=== PATIENT | male | born 1955 | race Caucasian/White ===

== ENCOUNTER 2018-06-27 20:32 | Emergency (ER) | payer OTHER ==
--- NOTE | 2018-06-27 21:04 | RAD REPORT ---
EXAM DESCRIPTION: CT - Ct Stroke Brain Wo Cont - 06/27/2018 8:54 pm CLINICAL HISTORY: Visual change, acute CVA CLINICAL HISTORY: None. TECHNIQUE: Axial 5 millimeter thick images of the head were obtained without IV contrast. All CT scans are performed using dose optimization technique as appropriate and may include automated exposure control or mA/KV adjustment according to patient size. FINDINGS: No intracranial hemorrhage, mass, or cerebral edema. No acute infarction identifiable. No cortical edema or sulcal effacement. No significant atrophy. Minimal chronic ischemic changes are pre sent. Singh matter-white matter differentiation is preserved. Visualized portions of the mastoid air cells, paranasal sinuses, and orbits are unremarkable. Findings telephoned to the referring physician 2100 hours. IMPRESSION: No CT evidence of acute intracranial process.
[2018-06-27 21:14] LABS: Absolute Monocytes 0.7 K/uL (0.1-1.3); Absolute Neutrophil 3.9 K/uL (1.8-8.0); Basophils % 0.8 % (0-1.3); Eosinophils % 4.9 % (0-4.4); Hematocrit 40.8 % (39.6-49.0); Lymphocytes % 27.8 % (15.3-44.8); MPV 7.4 fL (7.6-11.3); Monocytes % 10.7 % (3.3-12.3); RBC Red Blood Cell Count 4.51 M/uL (4.33-5.43)
[2018-06-27 21:23] LABS: Potassium 3.8 mmol/L (3.5-5.1)
[2018-06-27] MEDS ORDERED: ASPIRIN 81 MG CHEWABLE TABLET ONE (21:48)
[2018-06-27 21:49] LABS: Protime INR 0.9
--- NOTE | 2018-06-27 22:29 | ER ---
Nurse's Notes [facility] Name: Bryan Love Age: 62 yrs Sex: Male : 1955 Arrival Date: 06/27/2018 Time: 20:42 Bed 8 Private MD: Diagnosis: Transient cerebral ischemic attacks and related syndromes Presentation: 06/27 20:42 Presenting complaint: Patient states: I was in the living room and looked over at the la1 TV and I was seeing a double image when looking at it, when I sat down it got better, it happened at about 2005 and lasted for about one minute. No focal neuro deficits noted in triage, visual johnson intact. Transition of care: patient was not received from another setting of care. Onset of symptoms was June 27, 2018. Risk Assessment: Do you want to hurt yourself or someone else? Patient reports no desire to harm self or others. Initial Sepsis Screen: Does the patient meet any 2 criteria? No. Patient's initial sepsis screen is negative. Does the patient have a suspected source of infection? No. Patient's initial sepsis screen is negative. Care prior to arrival: None. 20:42 Method Of Arrival: Ambulatory la1 20:42 Acuity: AGRRETT 2 la1 21:14 No acute neurological deficit is noted. Pre-hospital glucose is not applicable to this ea patient. Triage Assessment: 20:52 The onset of the patients symptoms was June 27, 2018 at 20:05. ak1 Stroke Activation: Symptom onset < 3 hours Physician: Stroke Attending; Name: ; Notified At: ; Arrived At: Physician: Chief Stroke Resident; Name: ; Notified At: ; Arrived At: Physician: Stroke Resident; Name: ; Notified At: ; Arrived At: Physician: ED Attending; Name: Dr. Tucker; Notified At: 20:49; Arrived At: 20:49 Physician: ED Resident; Name: ; Notified At: ; Arrived At: Historical: - Allergies: 20:45 No Known Allergies; la1 - Home Meds: 20:45 lisinopril-hydrochlorothiazide 20-12.5 mg oral tab 1 tab once daily [Active]; la1 rosuvastatin 10 mg oral tab 1 tab once daily [Active]; Fish Oil oral oral [Active]; - PMHx: 20:45 Hypertension; High Cholesterol; la1 - PSHx: 20:45 None; la1 - Immunization history:: Adult Immunizations up to date. - Social history:: Smoking status: Patient/guardian denies using tobacco. - Ebola Screening: : No symptoms or risks identified at this time. Screenin:01 Abuse screen: Denies threats or abuse. Nutritional screening: No deficits noted. ea Tuberculosis screening: No symptoms or risk factors identified. Fall Risk IV access (20 points). Assessment: 20:51 Patient has been NPO before screening. The patient is alert, and able to follow ak1 commands. The patient does not exhibit slurred or garbled speech. The patient is not exhibiting difficulty speaking. The patient does not exhibit difficulty understanding words. The patient is able to swallow own secretions with no drooling or need for suction. Patient tolerated one teaspoon of water. No drooling, immediate coughing, gurgling, or clearing of the throat was noted. The patient tolerated 90mL of water. No drooling, immediate coughing, gurgling, or clearing of the throat was noted. The patient passed the bedside swallow screening. Oral medications may be given as ordered. Contact Physician for further diet orders. Provider notified of bedside swallow screening results: Akin Tucker MD. 21:16 General: Appears in no apparent distress. Behavior is calm, cooperative, appropriate ea for age. Pain: Denies pain. Neuro: Level of Consciousness is awake, alert, obeys commands, Oriented to person, place, time, situation. Cardiovascular: Patient's skin is warm and dry. Respiratory: Airway is patent Respiratory effort is even, unlabored, Respiratory pattern is regular, symmetrical. Derm: Skin is pink, warm \T\ dry. Musculoskeletal: Circulation, motion, and sensation intact. 21:55 Reassessment: Patient and/or family updated on plan of care and expected duration. Pain ea level reassessed. Patient is alert, oriented x 3, equal unlabored respirations, skin warm/dry/pink. Patient denies pain at this time. 23:00 Reassessment: Report called to Odessa MARTINEZ at the hospital at [facility]. ea 23:07 Reassessment: Patient and/or family updated on plan of care and expected duration. Pain ea level reassessed. Patient is alert, oriented x 3, equal unlabored respirations, skin warm/dry/pink. [facility] at facility for transfer, report given to EMS. Pt taken via stretcher per EMS accompanied by . 23:08 T-PA (Activase) Screening: Contraindications: Other: not appropriate at this time. ea Vital Signs: 20:45 BP 157 / 102; Pulse 68; Resp 18; Temp 97.8; Pulse Ox 98% on R/A; Weight 100.7 kg; la1 Height 5 ft. 8 in. (172.72 cm); 21:15 BP 144 / 95; Pulse 75; Resp 18; Pulse Ox 97% on R/A; ak1 22:13 BP 142 / 95; Pulse 76; Resp 18; Pulse Ox 97% on R/A; ea 22:45 BP 139 / 97; Pulse 77; Resp 18; Pulse Ox 100% on R/A; ea 20:45 Body Mass Index 33.75 (100.70 kg, 172.72 cm) la1 NIH Stroke Scale Scores: 20:50 NIHSS Score: 0 ea 21:14 NIHSS Score: 0 gs ED Course: 20:42 Patient arrived in ED. la1 20:43 Triage completed. la1 20:45 Arm band placed on left wrist. la1 20:47 Ghada Julio, MICHELLE is Primary Nurse. ea 20:48 Akin Tucker MD is Attending Physician. gs 20:55 CT Stroke Brain w/o Contrast In Process Unspecified. EDMS 20:55 Inserted saline lock: 20 gauge in right antecubital area, using aseptic technique. ea Blood collected. 21:03 Patient has correct armband on for positive identification. Bed in low position. Call ea light in reach. Side rails up X2. 21:06 X-ray completed. Portable x-ray completed in exam room. Patient tolerated procedure la2 well. 21:07 Stroke CXR 1 View In Process Unspecified. EDMS 23:07 No provider procedures requiring assistance completed. Patient transferred, IV remains ea in place. Administered Medications: 21:41 Drug: Aspirin Chewable Tablet 324 mg Route: PO; ea 21:56 Follow up: Response: No adverse reaction ea Point of Care Testing: Blood Glucose: 21:00 Blood Glucose: 98 mg/dL; ea Ranges: Outcome: 22:28 ER care complete, transfer ordered by . gs 22:30 Instructed on the need for transfer, Demonstrated understanding of instructions. ea 23:08 Transferred by ground EMS to [facility], Transfer form completed. ea 23:08 Condition: stable 23:09 Patient left the ED. NIH Stroke Scale - NIH Stroke Score Date: 06/27/2018 Time: 20:50 Total Score = 0 1a. Level of Consciousness (LOC) - 0(Alert) 1b. Level of Consciousness (LOC) (Year \T\ Age) - 0(Both) 1c. LOC Commands (Open \T\ Closes Eyes/Cotton Opener) - 0(Both) 2. Best Gaze (Lateral Gaze Paresis) - 0(Normal) 3. Visual Field Loss - 0(No visual loss) 4. Facial Palsy - 0(Normal) 5a. Left Arm: Motor (10-second hold) - 0(No drift) 5b. Right Arm: Motor (10-second hold) - 0(No drift) 6a. Left Leg: Motor (5-second hold - always test supine) - 0(No drift) 6b. Right Leg: Motor (5-second hold - always test supine) - 0(No drift) 7. Limb Ataxia (finger/nose \T\ heel/dey - test with eyes open) - 0(Absent) 8. Sensory Loss (pinprick arms/legs/face) - 0(Normal) 9. Best Language: Aphasia (description/naming/reading) - 0(No aphasia) 10. Dysarthria (speech clarity - read or repeat words) - 0(Normal) 11. Extinction and Inattention (visual/tactile/auditory/spatial/personal) - 0(No abnormality) Initials: NIH Stroke Scale - NIH Stroke Score Date: 06/27/2018 Time: 21:14 Total Score = 0 1a. Level of Consciousness (LOC) - 0(Alert) 1b. Level of Consciousness (LOC) (Year \T\ Age) - 0(Both) 1c. LOC Commands (Open \T\ Closes Eyes/Cotton Opener) - 0(Both) 2. Best Gaze (Lateral Gaze Paresis) - 0(Normal) 3. Visual Field Loss - 0(No visual loss) 4. Facial Palsy - 0(Normal) 5a. Left Arm: Motor (10-second hold) - 0(No drift) 5b. Right Arm: Motor (10-second hold) - 0(No drift) 6a. Left Leg: Motor (5-second hold - always test supine) - 0(No drift) 6b. Right Leg: Motor (5-second hold - always test supine) - 0(No drift) 7. Limb Ataxia (finger/nose \T\ heel/dey - test with eyes open) - 0(Absent) 8. Sensory Loss (pinprick arms/legs/face) - 0(Normal) 9. Best Language: Aphasia (description/naming/reading) - 0(No aphasia) 10. Dysarthria (speech clarity - read or repeat words) - 0(Normal) 11. Extinction and Inattention (visual/tactile/auditory/spatial/personal) - 0(No abnormality) Initials: Signatures: Dispatcher [employer] EDHenri Boyer RN RN la1 Felicita Mejia RN RN ak1 Ghada Julio RN RN ea Starr, Gregory, MD MD gs Ardoin, Leslie la2
--- NOTE | 2018-06-27 22:29 | EDPHYS ---
Physician Documentation [facility] Name: Bryan Love Age: 62 yrs Sex: Male : 1955 Arrival Date: 06/27/2018 Time: 20:42 Bed 8 Private MD: ED Physician Akin Tucker HPI: 06/27 21:14 This 62 yrs old Male presents to ER via Ambulatory with complaints of Vision gs Problem. 21:14 The patient's problem is reported as visual difficulty, double vision. Onset: The gs symptoms/episode began/occurred suddenly, at 20:05. Duration: This was a single incident, lasting 5 minute(s). The symptoms are alleviated by nothing. The symptoms are aggravated by nothing. Associated signs and symptoms: Pertinent positives: confusion, Pertinent negatives: chest pain. Severity of symptoms: At their worst the symptoms were severe in the emergency department the symptoms have resolved and did so just prior to arrival. The patient has not experienced similar symptoms in the past. 22:27 denies presyncope,near syncope, syncope, chest pain. gs Historical: - Allergies: 20:45 No Known Allergies; la1 - Home Meds: 20:45 lisinopril-hydrochlorothiazide 20-12.5 mg oral tab 1 tab once daily [Active]; la1 rosuvastatin 10 mg oral tab 1 tab once daily [Active]; Fish Oil oral oral [Active]; - PMHx: 20:45 Hypertension; High Cholesterol; la1 - PSHx: 20:45 None; la1 - Immunization history:: Adult Immunizations up to date. - Social history:: Smoking status: Patient/guardian denies using tobacco. - Ebola Screening: : No symptoms or risks identified at this time. ROS: 21:14 All other systems are negative. gs Exam: 21:14 Head/Face: Normocephalic, atraumatic. Eyes: Pupils equal round and reactive to light, gs extra-ocular motions intact. Lids and lashes normal. Conjunctiva and sclera are non-icteric and not injected. Cornea within normal limits. Periorbital areas with no swelling, redness, or edema. ENT: Nares patent. No nasal discharge, no septal abnormalities noted. Tympanic membranes are normal and external auditory canals are clear. Oropharynx with no redness, swelling, or masses, exudates, or evidence of obstruction, uvula midline. Mucous membranes moist. Neck: Trachea midline, no thyromegaly or masses palpated, and no cervical lymphadenopathy. Supple, full range of motion without nuchal rigidity, or vertebral point tenderness. No Meningismus. Chest/axilla: Normal chest wall appearance and motion. Nontender with no deformity. No lesions are appreciated. Cardiovascular: Regular rate and rhythm with a normal S1 and S2. No gallops, murmurs, or rubs. Normal PMI, no JVD. No pulse deficits. Respiratory: Lungs have equal breath sounds bilaterally, clear to auscultation and percussion. No rales, rhonchi or wheezes noted. No increased work of breathing, no retractions or nasal flaring. Abdomen/GI: Soft, non-tender, with normal bowel sounds. No distension or tympany. No guarding or rebound. No evidence of tenderness throughout. Back: No spinal tenderness. No costovertebral tenderness. Full range of motion. Skin: Warm, dry with normal turgor. Normal color with no rashes, no lesions, and no evidence of cellulitis. MS/ Extremity: Pulses equal, no cyanosis. Neurovascular intact. Full, normal range of motion. 21:14 Constitutional: The patient appears alert, awake. 21:14 Neuro: Orientation: is normal, Mentation: is normal, Cranial nerves: CN II- XII are normal as tested, Cerebellar function: normal finger to nose testing, Motor: moves all fours, strength is 5/5 in all extremities, Sensation: no obvious gross deficits, pin prick testing is normal, Deep tendon reflexes are normal, seizure activity, is not displayed by the patient. 21:22 ECG was reviewed by the Attending Physician. Vital Signs: 20:45 BP 157 / 102; Pulse 68; Resp 18; Temp 97.8; Pulse Ox 98% on R/A; Weight 100.7 kg; la1 Height 5 ft. 8 in. (172.72 cm); 21:15 BP 144 / 95; Pulse 75; Resp 18; Pulse Ox 97% on R/A; ak1 22:13 BP 142 / 95; Pulse 76; Resp 18; Pulse Ox 97% on R/A; ea 22:45 BP 139 / 97; Pulse 77; Resp 18; Pulse Ox 100% on R/A; ea 20:45 Body Mass Index 33.75 (100.70 kg, 172.72 cm) la1 NIH Stroke Scale Scores: 20:50 NIHSS Score: 0 ea 21:14 NIHSS Score: 0 gs MDM: 21:00 Patient medically screened. 21:14 Differential diagnosis: CVA, TIA, metabolic disorder, drug effects. Data reviewed: vital signs, nurses notes, lab test result(s), EKG, radiologic studies. Counseling: I had a detailed discussion with the patient and/or guardian regarding: the historical points, exam findings, and any diagnostic results supporting the discharge/admit diagnosis, lab results, radiology results, the need to transfer to another facility. Response to treatment: the patient's symptoms have resolved after treatment. 06/27 20:49 Order name: Basic Metabolic Panel; Complete Time: 21:27 06/27 20:49 Order name: CBC with Diff; Complete Time: 21:34 06/27 20:49 Order name: Protime (+inr); Complete Time: 21:52 06/27 20:49 Order name: Ptt, Activated; Complete Time: 21:52 06/27 20:49 Order name: CT Stroke Brain w/o Contrast; Complete Time: 21:10 06/27 21:54 Order name: Troponin (emerg Dept Use Only); Complete Time: 22:26 06/27 20:49 Order name: Stroke CXR 1 View 06/27 22:03 Interpretation: No acute disease. 06/27 20:49 Order name: EKG; Complete Time: 20:50 06/27 20:49 Order name: Accucheck; Complete Time: 21:00 06/27 20:49 Order name: Cardiac monitoring; Complete Time: 21:18 06/27 20:49 Order name: EKG - Nurse/Tech; Complete Time: 21:18 06/27 20:49 Order name: IV Saline Lock; Complete Time: 21:00 06/27 20:49 Order name: Labs collected and sent; Complete Time: 21:01 06/27 20:49 Order name: NPO; Complete Time: 21:01 06/27 20:49 Order name: O2 Per Protocol; Complete Time: 21:01 06/27 20:49 Order name: O2 Sat Monitoring; Complete Time: 21: 06/27 20:49 Order name: Stroke Swallow Screen; Complete Time: 21:01 gs EC:22 Rate is 80 beats/min. Rhythm is regular. VT interval is normal. QRS interval is gs prolonged. T waves are Normal. No ST changes noted. Clinical impression: Abnormal EKG without significant change. Interpreted by me. Administered Medications: 21:41 Drug: Aspirin Chewable Tablet 324 mg Route: PO; ea 21:56 Follow up: Response: No adverse reaction ea Point of Care Testing: Blood Glucose: 21:00 Blood Glucose: 98 mg/dL; ea Ranges: Critical Glucose Levels:Adult <50 mg/dl or >400 mg/dl <40 mg/dl or >180 mg/dl Disposition: 06/27/18 22:28 Transfer ordered to [facility]. Diagnosis is Transient cerebral ischemic attacks and related syndromes. - Reason for transfer: Higher level of care. - Accepting physician is reinaldo. - Condition is Stable. - Problem is new. - Symptoms are resolved. Critical care time excluding procedures: 21:14 Critical care time: Bedside Care: 10 minutes, Consultation: 10 minutes, Family gs Intervention: 10 minutes. Total time: 30 minutes NIH Stroke Scale - NIH Stroke Score Date: 06/27/2018 Time: 20:50 Total Score = 0 1a. Level of Consciousness (LOC) - 0(Alert) 1b. Level of Consciousness (LOC) (Year \T\ Age) - 0(Both) 1c. LOC Commands (Open \T\ Closes Eyes/Ticket Clerk) - 0(Both) 2. Best Gaze (Lateral Gaze Paresis) - 0(Normal) 3. Visual Field Loss - 0(No visual loss) 4. Facial Palsy - 0(Normal) 5a. Left Arm: Motor (10-second hold) - 0(No drift) 5b. Right Arm: Motor (10-second hold) - 0(No drift) 6a. Left Leg: Motor (5-second hold - always test supine) - 0(No drift) 6b. Right Leg: Motor (5-second hold - always test supine) - 0(No drift) 7. Limb Ataxia (finger/nose \T\ heel/dey - test with eyes open) - 0(Absent) 8. Sensory Loss (pinprick arms/legs/face) - 0(Normal) 9. Best Language: Aphasia (description/naming/reading) - 0(No aphasia) 10. Dysarthria (speech clarity - read or repeat words) - 0(Normal) 11. Extinction and Inattention (visual/tactile/auditory/spatial/personal) - 0(No abnormality) Initials: greg NIH Stroke Scale - NIH Stroke Score Date: 06/27/2018 Time: 21:14 Total Score = 0 1a. Level of Consciousness (LOC) - 0(Alert) 1b. Level of Consciousness (LOC) (Year \T\ Age) - 0(Both) 1c. LOC Commands (Open \T\ Closes Eyes/Ticket Clerk) - 0(Both) 2. Best Gaze (Lateral Gaze Paresis) - 0(Normal) 3. Visual Field Loss - 0(No visual loss) 4. Facial Palsy - 0(Normal) 5a. Left Arm: Motor (10-second hold) - 0(No drift) 5b. Right Arm: Motor (10-second hold) - 0(No drift) 6a. Left Leg: Motor (5-second hold - always test supine) - 0(No drift) 6b. Right Leg: Motor (5-second hold - always test supine) - 0(No drift) 7. Limb Ataxia (finger/nose \T\ heel/dey - test with eyes open) - 0(Absent) 8. Sensory Loss (pinprick arms/legs/face) - 0(Normal) 9. Best Language: Aphasia (description/naming/reading) - 0(No aphasia) 10. Dysarthria (speech clarity - read or repeat words) - 0(Normal) 11. Extinction and Inattention (visual/tactile/auditory/spatial/personal) - 0(No abnormality) Initials: gs Signatures: Dispatcher [employer] EDCA Henri De La Rosa RN RN la1 Ghada Julio RN RN ea Starr, Gregory, MD MD gs Corrections: (The following items were deleted from the chart) 23:09 22:28 06/27/2018 22:28 Transfer ordered to [facility]. ea Diagnosis is Transient cerebral ischemic attacks and related syndromes. Reason for transfer: Higher level of care. Accepting physician is reinaldo. Condition is Stable. Problem is new. Symptoms are resolved. gs
--- NOTE | 2018-06-28 06:19 | EKG ---
Test Date: 2018-06-27 Test Time: 21:04:03 [employer] Room Attendant: TATIANA MEASUREMENT RESULTS: Intervals: Rate: 80 OK: 198 QRSD: 146 QT: 444 QTc: 512 Jackson: P: 37 OK: 198 QRS: -32 T: 85 INTERPRETIVE STATEMENTS: Normal sinus rhythm Left axis deviation Left bundle branch block Abnormal ECG No previous ECG available for comparison Electronically Signed On 06-28-18 06:14:38 MACHINE REPAIR PERSON by Daquan Crabtree
--- NOTE | 2018-06-28 10:43 | RAD REPORT ---
EXAM DESCRIPTION: RAD - Chest Single View - 06/27/2018 9:08 pm CLINICAL HISTORY: MALAISE Chest pain. COMPARISON: No comparisons FINDINGS: Portable technique limits examination quality. The lungs are grossly clear. The heart is normal in size. No displaced fractures. IMPRESSION: No acute intrathoracic process suspected.
== END 2018-06-27 23:09 | disposition short-term general hospital (02) ==
LOC: ER 20:32
DX: G45.9 Transient cerebral ischemic attack, unspecified (principal); I44.7 Left bundle-branch block, unspecified; R94.31 Abnormal electrocardiogram [ECG] [EKG]; E78.00 Pure hypercholesterolemia, unspecified; I10 Essential (primary) hypertension; Z79.899 Other long term (current) drug therapy
CPT/HCPCS: 36415; 70450; 71045; 80048; 82962; 84484; 85025; 85610; 85730; 93005; 99285

== ENCOUNTER 2024-07-27 17:58 | Emergency (ER) | payer OTHER ==
--- NOTE | 2024-07-27 19:12 | RAD REPORT ---
Procedure: Chest Single View HISTORY: Chest pain COMPARISON: 2019 FINDINGS: The lungs appear clear of acute infiltrate. No significant pleural effusion noted. The heart is normal size. IMPRESSION: No acute abnormality is displayed.
--- NOTE | 2024-07-27 19:26 | RAD REPORT ---
EXAMINATION: CT HEAD WITHOUT CONTRAST CT CERVICAL SPINE WITHOUT CONTRAST CLINICAL INDICATION: Head and neck injury status post fall. Head and neck pain TECHNIQUE: Axial CT images from the skull base to the vertex without intravenous contrast. Axial CT i mages through the cervical spine were obtained without intravenous contrast. Sagittal and coronal reformatted images were created from the data set. Coronal and sagittal reformatted images were creat ed from the data set. One or more of the following dose reduction techniques were used: Automated exposure control, adjustment of the mA and/or kV according to patient size, and/or iterative reconstr uction. Unless otherwise specified, incidental findings do not require dedicated imaging follow-up. [id number]. Comparison: 2019 CT FINDINGS: An intracranial bleed is not seen. Ventricles are normal in caliber. No significant hypodensity within the brain No extra-axial fluid collection. No fluid within the sinuses/mastoids No fracture or dislocation is seen involving the cervical spine.. Spondylosis cervical spine. IMPRESSION: No acute intracranial abnormality noted A cervical fracture is not seen. If the patient continues to have symptoms to suggest acute MECHANICAL PRESS OPERATOR/spinal pathology then MRI would be rec ommended
[2024-07-27 19:45] LABS: Specific Gravity 1.007 (1.005-1.030); Urine Bilirubin NEGATIVE (Negative); Urine Blood Negative (Negative); Urine Clarity Clear (Clear); Urine Color Colorless (Yellow); Urine Glucose NEGATIVE (Negative); Urine Ketones 1+ (Negative); Urine Microscopic Reflex YN NO UMIC; Urine Nitrite NEGATIVE (Negative); Urine Protein NEGATIVE (Negative); Urine Urobilinogen Normal (Normal); Urine pH 6.5 (5.0-7.0)
[2024-07-27] MEDS ORDERED: TDAP (DIPHTH,PERTUSS(ACELL),TET VAC) 0.5 ML VIAL IMVAC ONE (20:08)
[2024-07-27] MEDS ORDERED: LIDOCAINE VISCOUS 2% 10ML ORAL SOLN ONE (20:08)
--- NOTE | 2024-07-27 20:47 | ER ---
Nurse's Notes [facility] Name: Bryan Love Age: 68 yrs Sex: Male : 1955 Arrival Date: 07/27/2024 Time: 17:58 Bed 2 Private MD: Diagnosis: Syncope;Laceration without foreign body of other part of head;Unspecified injury of head, initial encounter;Abrasion of unspecified back wall of thorax;Skin tear to right hand Presentation: 07/27 18:06 Chief complaint: Patient states: Pt reports walking on treadmill - fell and hit head. ld1 Pt concerned because he takes plavix once daily. Coronavirus screen: At this time, the client does not indicate any symptoms associated with coronavirus-19. Ebola Screen: No symptoms or risks identified at this time. Initial Sepsis Screen: Does the patient meet any 2 criteria? No. Patient's initial sepsis screen is negative. Does the patient have a suspected source of infection? No. Patient's initial sepsis screen is negative. Risk Assessment: Do you want to hurt yourself or someone else? Patient reports no desire to harm self or others. Onset of symptoms was July 27, 2024. 18:06 Method Of Arrival: Ambulatory ld1 18:06 Acuity: GARRETT 2 ld1 Triage Assessment: 18:06 General: Appears in no apparent distress. comfortable, Behavior is calm, cooperative, ld1 appropriate for age. Pain: Denies pain. EENT: No signs and/or symptoms were reported regarding the EENT system. Neuro: Level of Consciousness is awake, alert, obeys commands, Oriented to person, place, time, situation, Appropriate for age. Cardiovascular: Capillary refill < 3 seconds Patient's skin is warm and dry. Respiratory: Airway is patent Respiratory effort is even, unlabored. GI: Abdomen is round non-distended. : No signs and/or symptoms were reported regarding the genitourinary system. Derm: No signs and/or symptoms reported regarding the dermatologic system. Musculoskeletal: No signs and/or symptoms reported regarding the musculoskeletal system. Historical: - Allergies: 18:05 No Known Allergies; ld1 - Home Meds: 18:05 Plavix 75 mg oral tablet 1 tab daily [Active]; ld1 - PMHx: 18:05 High Cholesterol; Hypertension; Heart Stent (Hypertension); ld1 - Immunization history:: Adult Immunizations up to date. - Infectious Disease History:: Denies. - Social history:: Smoking status: Patient denies any tobacco usage or history of. Screenin:20 [facility] ED Fall Risk Assessment (Adult) History of falling in the last 3 months, jb4 including since admission No falls in past 3 months (0 pts) Confusion or Disorientation No (0 pts) Intoxicated or Sedated No (0 pts) Impaired Gait No (0 pts) Mobility Assist Device Used No (0 pt) Altered Elimination No (0 pt) Score/Fall Risk Level 0 - 2 = Low Risk Oriented to surroundings, Maintained a safe environment. Abuse screen: Denies threats or abuse. Nutritional screening: No deficits noted. Tuberculosis screening: No symptoms or risk factors identified. Assessment: 19:41 Reassessment: Patient appears in no apparent distress at this time. Patient and/or jb4 family updated on plan of care and expected duration. Pain level reassessed. Patient is alert, oriented x 3, equal unlabored respirations, skin warm/dry/pink. Pt refusing blood work at this time, provider notified. 20:18 Reassessment: Patient appears in no apparent distress at this time. Patient and/or jb4 family updated on plan of care and expected duration. Pain level reassessed. Patient is alert, oriented x 3, equal unlabored respirations, skin warm/dry/pink. 21:00 Reassessment: Patient appears in no apparent distress at this time. Patient and/or jb4 family updated on plan of care and expected duration. Pain level reassessed. Patient is alert, oriented x 3, equal unlabored respirations, skin warm/dry/pink. Vital Signs: 18:06 Pulse 86; Resp 18; Temp 97.5(TE); Pulse Ox 100% on R/A; Weight 97.98 kg; Height 5 ft. 8 ld1 in. ; Pain 0/10; 18:08 BP 188 / 102; ld1 20:13 BP 139 / 81 LA Supine (auto/reg); Pulse 79; Resp 16; Pulse Ox 99% on R/A; jb4 20:14 BP 159 / 98 LA Sitting (auto/reg); Pulse 82; Resp 16; Pulse Ox 100% on R/A; jb4 20:15 BP 146 / 98 LA Standing (auto/reg); Pulse 82; Resp 16; Pulse Ox 100% on R/A; jb4 18:06 Body Mass Index 32.84 (97.98 kg, 172.72 cm) ld1 18:06 Pain Scale: Adult ld1 ED Course: 18:00 Patient arrived in ED. mr 18:03 [facility]. kb 18:03 Romaine Li MD is Attending Physician. kb 18:06 Arm band placed on right wrist. ld1 18:07 Triage completed. ld1 18:28 Chest Single View XRAY In Process Unspecified. EDMS 19:13 CT Head C Spine In Process Unspecified. EDMS 19:41 Urinalysis w/ reflexes Sent. jb4 20:20 Patient has correct armband on for positive identification. Bed in low position. Call jb4 light in reach. Side rails up X 1. Provided Education on: plan of care. 20:20 No provider procedures requiring assistance completed. Patient did not have IV access jb4 during this emergency room visit. Administered Medications: 20:17 Drug: Boostrix Tdap IM 0.5 ml IM once; as a single dose Route: IM; Site: right deltoid; jb4 21:00 Follow up: Response: No adverse reaction jb4 20:17 Drug: Viscous Lidocaine Mucous Membrane Liquid (4 %) 5 ml Mucous Membrane once Route: jb4 Mucous Membrane; 21:00 Follow up: Response: No adverse reaction; Marked relief of symptoms jb4 Medication: 21:00 VIS not applicable for this client. jb4 Outcome: 20:47 Discharge ordered by . doris 21:00 Discharged to home ambulatory, with family, jb4 21:00 Condition: stable 21:00 Discharge instructions given to patient, Instructed on discharge instructions, follow up and referral plans. wound care, Demonstrated understanding of instructions, follow-up care, wound care, 21:01 Patient left the ED. jb4 Signatures: Dispatcher [employer] EDMS Maria E Foreman FNP-C FNP-April Quigley, Reg Reg mr WatsonChet, RN RN jb4 Lily Ibarra RN RN ld1
--- NOTE | 2024-07-27 20:47 | EDPHYS ---
Physician Documentation [facility] Name: Bryan Love Age: 68 yrs Sex: Male : 1955 Arrival Date: 07/27/2024 Time: 17:58 Bed 2 Private MD: ED Physician Romaine Li HPI: 07/27 20:35 This 68 yrs old Male presents to ER via Ambulatory with complaints of Fall Injury, Head kb Injury With LOC-Adult, Laceration To Head. 20:35 Patient is a 68-year-old male who presents for laceration to head after having a kb syncopal episode while walking on the treadmill. States he had been walking on the treadmill for about 20 minutes, got dizzy and had a syncopal episode. States he was out for just a few seconds. Hit his head on a bottle which caused a laceration. States it did not break the bottle. Denies any pain. States dizziness has resolved.. Historical: - Allergies: 18:05 No Known Allergies; ld1 - Home Meds: 18:05 Plavix 75 mg oral tablet 1 tab daily [Active]; ld1 - PMHx: 18:05 High Cholesterol; Hypertension; Heart Stent (Hypertension); ld1 - Immunization history:: Adult Immunizations up to date. - Infectious Disease History:: Denies. - Social history:: Smoking status: Patient denies any tobacco usage or history of. ROS: 20:33 Constitutional: As per HPI kb Exam: 20:33 Constitutional: This is a well developed, well nourished patient who is awake, alert, kb and in no acute distress. ENT: Moist Mucous membranes Chest/axilla: Normal chest wall appearance and motion. Cardiovascular: Regular rate Respiratory: Respirations even and unlabored. No increased work of breathing. Talking in full sentences Abdomen/GI: Soft, non-tender. No distention Back: No spinal tenderness. No costovertebral tenderness. Full range of motion. MS/ Extremity: Pulses equal, no cyanosis. Neurovascular intact. Full, normal range of motion. Neuro: Awake and alert, GCS 15, oriented to person, place, time, and situation. 20:33 Head/face: Noted is no obvious of injury or deformity except a laceration(s), that is superficial, 2.5 cm(s), of the right frontal area, 20:33 Skin: abrasion to back, skin tear to dorsal aspect of right hand. Vital Signs: 18:06 Pulse 86; Resp 18; Temp 97.5(TE); Pulse Ox 100% on R/A; Weight 97.98 kg; Height 5 ft. 8 ld1 in. ; Pain 0/10; 18:08 BP 188 / 102; ld1 20:13 BP 139 / 81 LA Supine (auto/reg); Pulse 79; Resp 16; Pulse Ox 99% on R/A; jb4 20:14 BP 159 / 98 LA Sitting (auto/reg); Pulse 82; Resp 16; Pulse Ox 100% on R/A; jb4 20:15 BP 146 / 98 LA Standing (auto/reg); Pulse 82; Resp 16; Pulse Ox 100% on R/A; jb4 18:06 Body Mass Index 32.84 (97.98 kg, 172.72 cm) ld1 18:06 Pain Scale: Adult ld1 Laceration: 20:46 Wound Repair of 2.5cm ( 1.0in ) subcutaneous laceration to right frontal area. kb Irregularly shaped.. Distal neuro/vascular/tendon intact. Anesthesia: Topical anesthetic administered with 1% lidocaine. Wound prep: Extensive cleansing by nurse, Wound irrigation by nurse. Skin closed with 5 1-0 [place] using staple gun. Patient tolerated well. MDM: 18:03 Medical Screening Exam initiated kb 20:36 Differential diagnosis: closed head injury, contusion, fracture, ICH, arrhythmia, kb abnormal electrolytes, dehydration. Data reviewed: vital signs, nurses notes. 20:37 Test considered but Not performed: Labs: Serum labs considered and ordered but patient kb does not want them done. States he has a follow-up with his dairy bacteriologist and they will do all of those test there. States he feels okay and since his CT was normal he would rather go home. States he has not been drinking his normal amount of water and he has been dieting so he thinks that is the cause of the dizziness and syncope for today.. Historians other than the Patient: Spouse/Significant Other: . Counseling: I had a detailed discussion with the patient and/or guardian regarding the historical points, exam findings, and any diagnostic results supporting the discharge/admit diagnosis, lab results, radiology results, the need for outpatient follow up, a family practitioner, to return to the emergency department if symptoms worsen or persist or if there are any questions or concerns that arise at home. 07/27 18:14 Order name: Urinalysis w/ reflexes; Complete Time: 20:04 ld07/27 18:14 Order name: CT Head C Spine; Complete Time: 19:31 ld1 07/27 18:14 Order name: Chest Single View XRAY; Complete Time: 19:15 ld07/27 18:14 Order name: Labs collected and sent; Complete Time: 20:11 ld07/27 18:14 Order name: NPO; Complete Time: 19:41 ld1 07/27 18:14 Order name: O2 Per Protocol; Complete Time: 19:41 ld07/27 18:14 Order name: O2 Sat Monitoring; Complete Time: 19:41 ld07/27 18:14 Order name: Orthostatics; Complete Time: 21:00 ld1 07/27 18:14 Order name: Dressing - Wound; Complete Time: 21:00 ld07/27 18:14 Order name: Gloves, Sterile; Complete Time: 21:00 ld07/27 18:14 Order name: Setup Suture Tray; Complete Time: 21:00 ld1 Administered Medications: 20:17 Drug: Boostrix Tdap IM 0.5 ml IM once; as a single dose Route: IM; Site: right deltoid; jb4 21:00 Follow up: Response: No adverse reaction jb4 20:17 Drug: Viscous Lidocaine Mucous Membrane Liquid (4 %) 5 ml Mucous Membrane once Route: jb4 Mucous Membrane; 21:00 Follow up: Response: No adverse reaction; Marked relief of symptoms jb4 Disposition Summary: 07/27/24 20:47 Discharge Ordered Notes: Location: Home kb Condition: Stable kb Diagnosis - Syncope kb - Laceration without foreign body of other part of head kb - Unspecified injury of head, initial encounter kb - Abrasion of unspecified back wall of thorax kb - Skin tear to right hand kb Followup: kb - With: Emergency Department - When: As needed - Reason: Worsening of condition Followup: kb - With: Private Physician - When: 2 - 3 days - Reason: Recheck today's complaints, Continuance of care, Re-evaluation by your physician Discharge Instructions: - Discharge Summary Sheet kb - Laceration Care, Adult, [id number] kb - Syncope, [id number] kb - Head Injury, Adult, [id number] kb Forms: - Medication Reconciliation Form kb - Antibiotic Education kb - Prescription Opioid Use kb - Patient Portal Instructions kb - Leadership Thank You Letter kb Signatures: Dispatcher [employer] EDUT Maria E Foreman, GRID MOLDER-C GRID MOLDER-Chet Sánchez, RN RN jb4 Lily Ibarra, RN RN ld1 Corrections: (The following items were deleted from the chart) 18:15 18:14 Head C Spine MPR Wo Con+CT.RAD.BRZ ordered. EDUT EDUT 19:41 18:14 IV Saline Lock ordered. ld1 jb4 20:11 18:14 Cardiac monitoring ordered. ld1 jb4 20:11 18:14 EKG - Nurse/Tech ordered. ld1 jb4 20:37 20:35 Patient is a 68-year-old male who presents for laceration to head after having a kb syncopal episode while walking on the treadmill. States he had been walking on the treadmill for about 20 minutes, got dizzy and had a syncopal episode. States he was out for just a few seconds. Hit his head on a bottle which caused a laceration. States it did not break the bottle. Denies any pain. States dizziness has resolved.. kb
[2024-07-27 21:25] VITALS: TEMP 97.5
[2024-07-27 21:28] VITALS: O2SAT 100
[2024-07-27 21:29] VITALS: BP 146/98
== END 2024-07-27 21:01 | disposition home or self-care (01) ==
LOC: ER 17:58
DX: S01.81XA Laceration without foreign body of other part of head, initial encounter (principal); S61.411A Laceration without foreign body of right hand, initial encounter; S20.411A Abrasion of right back wall of thorax, initial encounter; Z95.818 Presence of other cardiac implants and grafts; Z79.01 Long term (current) use of anticoagulants
CPT/HCPCS: 70450; 71045; 72125; 81003

== ENCOUNTER 2024-08-05 10:42 | Emergency (ER) | payer OTHER ==
--- NOTE | 2024-08-05 11:02 | EDPHYS ---
Physician Documentation [facility] Name: Bryan Love Age: 68 yrs Sex: Male : 1955 Arrival Date: 08/05/2024 Time: 10:42 Bed IW1 Private MD: ED Physician Romaine Li HPI: 08/05 10:59 This 68 yrs old Male presents to ER via Ambulatory with complaints of Suture Removal. rn 10:59 The patient has destini on the scalp. Sutures/destini progress: The patient has no rn c/o's. The wound is well-healing with no redness, swelling, discharge, or dehiscence reported. The patient has not experienced similar symptoms in the past. 5 destini placed in right frontotemporal region of scalp 9 days ago. Well-healed, no drainage, no headache or complaints.. Historical: - Allergies: 10:49 No Known Allergies; aa5 - PMHx: 10:48 HEART STENT (Hypertension); High Cholesterol; Hypertension; aa5 - Immunization history:: Adult Immunizations up to date. - Infectious Disease History:: Denies. - Social history:: Smoking status: Patient denies any tobacco usage or history of. - Family history:: not pertinent. - Hospitalizations: : No recent hospitalization is reported. ROS: 10:59 Constitutional: Negative for fever, chills, and weight loss, Neuro: Negative for rn headache, weakness, numbness, tingling, and seizure, Exam: 10:59 Constitutional: This is a well developed, well nourished patient who is awake, alert, rn and in no acute distress. Head/Face: 5 destini identified right frontotemporal scalp, wound appears well-healed covered by scab. No evidence of gaping Vital Signs: 10:48 BP 151 / 90; Pulse 79; Resp 16 S; Temp 97.5(TE); Pulse Ox 99% on R/A; aa5 Procedures: 10:59 Suture/Staple removal: Removed 5 destini, from scalp, site appears well healed, Patient rn tolerated well. MDM: 10:45 Medical Screening Exam initiated rn 10:59 Data reviewed: vital signs, nurses notes, and as a result, I will discharge patient. rn Counseling: I had a detailed discussion with the patient and/or guardian regarding the historical points, exam findings, and any diagnostic results supporting the discharge/admit diagnosis, the need for outpatient follow up, to return to the emergency department if symptoms worsen or persist or if there are any questions or concerns that arise at home. Special discussion: I discussed with the patient/guardian in detail that at this point there is no indication for admission to the hospital. It is understood, however, that if the symptoms persist or worsen the patient needs to return immediately for re-evaluation. Administered Medications: No medications were administered Disposition Summary: 08/05/24 11:01 Discharge Ordered Notes: Location: Home rn Problem: new rn Symptoms: have improved rn Condition: Stable rn Diagnosis - Encounter for staple removal rn Followup: rn - With: Private Physician - When: As needed - Reason: Recheck today's complaints, Re-evaluation by your physician Discharge Instructions: - Discharge Summary Sheet rn - Sutures, Destini, or Adhesive Wound Closure rn Forms: - Medication Reconciliation Form rn - Antibiotic advertising intern - Prescription Opioid Use rn - Patient Portal Instructions rn - Leadership Thank You Letter rn Signatures: Romaine Li MD MD rn Calderon, Audri, RN RN aa5
--- NOTE | 2024-08-05 11:02 | ER ---
Nurse's Notes [facility] Name: Bryan Love Age: 68 yrs Sex: Male : 1955 Arrival Date: 08/05/2024 Time: 10:42 Bed IW1 Private MD: Diagnosis: Encounter for staple removal Presentation: 08/05 10:48 Chief complaint: Patient states: need for staple removal from right side of head, aa5 reports stapled were placed 07/27/24. Coronavirus screen: At this time, the client does not indicate any symptoms associated with coronavirus-19. Ebola Screen: Patient denies travel to an Ebola-affected area in the 21 days before illness onset. Initial Sepsis Screen: Does the patient meet any 2 criteria? No. Patient's initial sepsis screen is negative. Does the patient have a suspected source of infection? No. Patient's initial sepsis screen is negative. Risk Assessment: Do you want to hurt yourself or someone else? Patient reports no desire to harm self or others. Onset of symptoms was July 2024. 10:48 Method Of Arrival: Ambulatory aa5 10:48 Acuity: GARRETT 4 aa5 Historical: - Allergies: 10:49 No Known Allergies; aa5 - PMHx: 10:48 HEART STENT (Hypertension); High Cholesterol; Hypertension; aa5 - Immunization history:: Adult Immunizations up to date. - Infectious Disease History:: Denies. - Social history:: Smoking status: Patient denies any tobacco usage or history of. - Family history:: not pertinent. - Hospitalizations: : No recent hospitalization is reported. Screenin:50 [facility] ED Fall Risk Assessment (Adult) History of falling in the last 3 months, aa5 including since admission Yes- single mechanical fall (1 pt) Confusion or Disorientation No (0 pts) Intoxicated or Sedated No (0 pts) Impaired Gait No (0 pts) Mobility Assist Device Used No (0 pt) Altered Elimination No (0 pt) Score/Fall Risk Level 0 - 2 = Low Risk Oriented to surroundings, Maintained a safe environment, Educated pt \T\ family on fall prevention, incl call for assistance when getting out of bed, Assessed \T\ reinforced patient's understanding of fall precautions. Abuse screen: Denies threats or abuse. Nutritional screening: No deficits noted. Tuberculosis screening: No symptoms or risk factors identified. Assessment: 10:48 General: Appears comfortable, Behavior is calm, cooperative. Pain: Denies pain. Neuro: aa5 Level of Consciousness is awake, alert, obeys commands, Oriented to person, place, time, situation. Cardiovascular: Patient's skin is warm and dry. Respiratory: Airway is patent Respiratory effort is even, unlabored, Respiratory pattern is regular, symmetrical. GI: No signs and/or symptoms were reported involving the gastrointestinal system. : No signs and/or symptoms were reported regarding the genitourinary system. EENT: No signs and/or symptoms were reported regarding the EENT system. Derm: Skin is pink, warm \T\ dry. [place] noted to right side of head. Musculoskeletal: Range of motion: intact in all extremities. 10:50 Reassessment: destini removed by Dr. Li . aa5 11:09 Reassessment: Patient is alert, oriented x 3, equal unlabored respirations, skin aa5 warm/dry/pink. Vital Signs: 10:48 BP 151 / 90; Pulse 79; Resp 16 S; Temp 97.5(TE); Pulse Ox 99% on R/A; aa5 ED Course: 10:43 Patient arrived in ED. im 10:44 Romaine Li MD is Attending Physician. rn 10:48 Triage completed. aa5 10:48 Arm band placed on. aa5 10:48 Patient has correct armband on for positive identification. aa5 11:09 No provider procedures requiring assistance completed. Patient did not have IV access aa5 during this emergency room visit. 11:10 Domonique Lynn, RN is Primary Nurse. aa5 Administered Medications: No medications were administered Medication: 10:48 VIS not applicable for this client. aa5 Outcome: 11:01 Discharge ordered by . rn 11:09 Discharged to home ambulatory, with significant other, aa5 11:09 Condition: good 11:09 Discharge instructions given to patient, Instructed on discharge instructions, follow up and referral plans. Demonstrated understanding of instructions, follow-up care, 11:10 Patient left the ED. aa5 Signatures: Romaine Li MD MD rn Calderon, Audri, RN RN [email or web address] Meena Michelle im Corrections: (The following items were deleted from the chart) 16:54 10:50 Reassessment: stapled removed by Dr. Li . aa5 aa5 16:55 10:48 Derm: Skin is pink, warm \T\ dry. aa5 aa5
[2024-08-05 11:15] VITALS: BP 151/90; TEMP 97.5; O2SAT 99
== END 2024-08-05 11:10 | disposition home or self-care (01) ==
LOC: ER 10:42
DX: Z48.02 Encounter for removal of sutures (principal)
CPT/HCPCS: 99282